=== PATIENT | female | born 1980 | race Caucasian/White ===

== ENCOUNTER 2024-09-13 17:12 | Emergency (ER) | payer BC, OTHER ==
[2024-09-13] MEDS: Morphine 4 MG/ML VIAL IVPUSH ONE (17:30)
[2024-09-13] MEDS: Sodium Chloride 0.9% 1,000 ML IV SCH (17:30)
[2024-09-13] MEDS: Ondansetron 4 MG/2 ML SDV IVPUSH ONE (17:32)
[2024-09-13 17:40] LABS: HEMATOCRIT 42.8 % (34.2-48.2); HEMOGLOBIN 14.4 g/dL (11.4-15.5); MEAN CORPUSCULAR HEMOGLOBIN 31.5 pg (23.9-33.9); MEAN CORPUSCULAR HGB CONC 33.7 g/dL (31.9-34.8); MEAN CORPUSCULAR VOLUME 93.5 fL (76.7-100.5); MEAN PLATELET VOLUME 8.3 fL (7.1-12.4); PLATELET COUNT,PLT 337 x10(3)uL (151-488); RED BLOOD CELL COUNT 4.58 x10(6)uL (3.60-5.20); RED CELL DISTRIBUTION WIDTH 12.8 % (12.3-16.5); WHITE BLOOD CELL COUNT,WBC 11.3 x10-3/uL (3.0-10.3)
[2024-09-13 17:49] LABS: BLOOD UREA NITROGEN,BUN 8 mg/dL (7-18); CALCIUM 9.9 mg/dL (8.6-10.2); CARBON DIOXIDE,CO2 23 mmol/L (21-32); CHLORIDE,CL 98 mmol/L (100-110); ESTIMATED GFR 72 mL/min (>60); GLUCOSE RANDOM 192 mg/dL (80-116); POTASSIUM,K 3.8 mmol/L (3.5-5.3); SODIUM,NA 136 mmol/L (135-145)
[2024-09-13 17:54] LABS: BAND PERCENT MAN 3 % (0-6); LYMPHOCYTES PERCENT MAN 18 % (13-37); MONOCYTES PERCENT MAN 5 % (4-12); SEG NEUTROPHILS PERCENT MAN 74 % (46-82)
[2024-09-13 17:55] LABS: A/G RATIO 1.1; ALANINE AMINOTRANSFERASE,ALT 36 U/L (12-36); ALBUMIN 4.3 g/dL (3.5-5.2); ALKALINE PHOSPHATASE 80 IU/L (56-112); ASPARTATE AMNIOTRANSFERASE,AST 20 IU/L (5-25); BILIRUBIN TOTAL 0.7 mg/dL (0.1-1.3); PROTEIN TOTAL,TP 8.3 g/dL (6.0-8.0)
[2024-09-13 18:08] LABS: LACTIC ACID 2.8 mmol/L (0.4-2.0)
[2024-09-13] MEDS: Sodium Chloride 0.9% 10 ML Syringe FLUSH PRN (19:03)
[2024-09-13] MEDS: Prochlorperazine 10 MG/2 ML SDV IVPUSH ONE (19:03)
[2024-09-13] MEDS: Iopamidol 755 Mg/ML 100 ML Bottle IV SCH (19:05)
[2024-09-13] MEDS: Metoclopramide 10 MG/2 ML SDV IVPUSH ONE (19:31)
[2024-09-13] MEDS: Lactated Ringers 1,000 ML IV SCH (19:32)
[2024-09-13] MEDS: LORazepam 2 MG/ML SDV IVPUSH STA (19:32)
[2024-09-13] MEDS: Ciprofloxacin 500 MG Tab PO ONE (21:21)
[2024-09-13] MEDS: metroNIDAZOLE 500 MG Tab PO ONE (21:22)
[2024-09-13 21:33] VITALS: BP 132/68; PULSE 87
== END 2024-09-13 21:21 | disposition home or self-care (01) ==
LOC: FB.ED 17:12
DX: K52.9 Noninfective gastroenteritis and colitis, unspecified (principal); Z88.7 Allergy status to serum and vaccine; Z79.899 Other long term (current) drug therapy
CPT/HCPCS: 36415; 74177; 80053; 83605; 83690; 85025; 96361; 96374; 96375; 99284; 99284-25; A9270-GY; J0780; J2060; J2270; J2405; J2765; J7030; J7120; Q9967

== ENCOUNTER 2024-12-23 20:07 | Emergency (ER) | payer OTHER ==
[2024-12-23] MEDS ORDERED: ALPRAZolam 0.5 MG Tab PO ONE (20:08)
[2024-12-23] MEDS: hydrOXYzine HCl 50 MG/ML SDV IM ONE (20:22)
[2024-12-23] MEDS: LORazepam 2 MG/ML SDV IM ONE (20:24)
[2024-12-23 20:34] LABS: BASOPHILS PERCENT AUTO 0.5 % (0.2-1.5); EOSINOPHILS ABSOLUTE AUTO 0.1 x10-3/uL (0.0-0.8); EOSINOPHILS PERCENT AUTO 0.9 % (0.6-8.1); HEMATOCRIT 41.5 % (34.2-48.2); HEMOGLOBIN 14.1 g/dL (11.4-15.5); LYMPHOCYTES ABSOLUTE AUTO 1.6 x10-3/uL (1.0-4.4); LYMPHOCYTES PERCENT AUTO 21.7 % (18.4-52.1); MEAN CORPUSCULAR HEMOGLOBIN 31.4 pg (23.9-33.9); MEAN CORPUSCULAR HGB CONC 34.1 g/dL (31.9-34.8); MEAN CORPUSCULAR VOLUME 92.2 fL (76.7-100.5); MEAN PLATELET VOLUME 7.9 fL (7.1-12.4); MONOCYTES ABSOLUTE AUTO 0.4 x10-3/uL (0.3-1.0); MONOCYTES PERCENT AUTO 4.7 % (4.4-15.7); NEUTROPHILS ABSOLUTE AUTO 5.4 x10-3/uL (1.5-6.3); NEUTROPHILS PERCENT AUTO 72.2 % (30.8-76.2); PLATELET COUNT,PLT 246 x10(3)uL (151-488); RED CELL DISTRIBUTION WIDTH 13.1 % (12.3-16.5); WHITE BLOOD CELL COUNT,WBC 7.5 x10-3/uL (3.0-10.3)
[2024-12-23 20:37] LABS: BLOOD UREA NITROGEN,BUN 11 mg/dL (7-18); CALCIUM 9.6 mg/dL (8.6-10.2); CARBON DIOXIDE,CO2 24 mmol/L (21-32); CHLORIDE,CL 100 mmol/L (100-110); ESTIMATED GFR 71 mL/min (>60); GLUCOSE RANDOM 145 mg/dL (80-116); POTASSIUM,K 3.8 mmol/L (3.5-5.3); SODIUM,NA 136 mmol/L (135-145)
[2024-12-23 20:43] LABS: A/G RATIO 1.1; ALANINE AMINOTRANSFERASE,ALT 28 U/L (12-36); ALBUMIN 3.7 g/dL (3.5-5.2); ALKALINE PHOSPHATASE 73 IU/L (56-112); ASPARTATE AMNIOTRANSFERASE,AST 18 IU/L (5-25); BILIRUBIN TOTAL 1.3 mg/dL (0.1-1.3)
[2024-12-23] MEDS: Ketorolac 30 MG/ML SDV IM ONE (21:09)
[2024-12-23 22:52] VITALS: BP 112/59; PULSE 89
== END 2024-12-23 21:45 | disposition home or self-care (01) ==
LOC: FB.ED 20:07
DX: F41.9 Anxiety disorder, unspecified (principal); Z79.899 Other long term (current) drug therapy; Z88.8 Allergy status to other drugs, medicaments and biological substances
CPT/HCPCS: 36415; 80053; 85025; 96372; 99284; A9270; J1885; J2060; J3410